=== PATIENT | male | born 1995 | race Caucasian/White ===

== ENCOUNTER 2017-03-05 12:20 | Emergency (ER) | payer SELFPAY ==
[2017-03-05 12:31] VITALS: BP 118/44
--- NOTE | 2017-03-05 12:36 | UC ---
Abdominal Pain Male HPI - HPI Summary HPI Summary: 21 YEAR OLD MALE PRESENTS WITH COMPLAINS NAUSEA, VOMITING AND ABDOMINAL PAIN - History of Current Complaint Chief Complaint: UCGeneralIllness Stated Complaint: NAUSEA DIARRHEA Time Seen by Provider: 03/05/17 12:30 - Allergies/Home Medications Allergies/Adverse Reactions: Allergies Allergy/AdvReac Type Severity Reaction Status Date / Time Sulfa Drugs Allergy Unknown Verified 03/05/17 12:31 Reaction Details Home Medications: Home Medications NK [No Home Medications Reported] 03/05/17 [History Confirmed 03/05/17] PMH/Surg Hx/FS Hx/Imm Hx - Surgical History Surgical History: Yes Surgery Procedure, Year, and Place: ear tubes at age 2-3 yrs - Family History Known Family History: Positive: None - Social History Alcohol Use: Weekly Substance Use Type: None Smoking Status (MU): Never Smoked Tobacco - Immunization History Most Recent Influenza Vaccination: [id number] Review of Systems Constitutional: Negative Skin: Negative Eyes: Negative ENT: Negative Respiratory: Negative Cardiovascular: Negative Gastrointestinal: Abdominal Pain, Vomiting, Diarrhea, Nausea Genitourinary: Negative Motor: Negative Neurovascular: Negative Musculoskeletal: Negative Neurological: Negative Psychological: Negative All Other Systems Reviewed And Are Negative: Yes Physical Exam Triage Information Reviewed: Yes Vital Signs: Initial Vital Signs Temp 36.9 C 03/05/17 12:29 Pulse 76 03/05/17 12:29 Resp 14 03/05/17 12:29 BP 118/44 03/05/17 12:29 Pulse Ox 96 03/05/17 12:29 Eye Exam: Normal ENT Exam: Normal Dental Exam: Normal Neck exam: Normal Neck: Positive: 1 Respiratory Exam: Normal Cardiovascular Exam: Normal Abdomen Description: Positive: Other: - TENDER Musculoskeletal Exam: Normal Neurological Exam: Normal Psychological Exam: Normal Skin Exam: Normal Abd Pain Male Course/Dx - Differential Dx/Clinical Impression Provider Diagnoses: NAUSEA. VOMITTING Discharge - Discharge Plan Condition: Stable Disposition: HOME Patient Education Materials: Acute Nausea and Vomiting (ED) Forms: *Work Release Referrals: Rosario Sabillon MD [Primary Care Provider] -
== END 2017-03-05 12:45 | disposition home or self-care (01) ==
LOC: UCCORT 12:20
DX: R11.2 Nausea with vomiting, unspecified (principal)
CPT/HCPCS: 99211; G0463

== ENCOUNTER 2017-05-03 08:29 | Emergency (ER) | payer SELFPAY ==
[2017-05-03 08:54] VITALS: BP 114/58
--- NOTE | 2017-05-12 19:15 | UC ---
Abdominal Pain Male HPI - HPI Summary HPI Summary: 21 YEAR OLD MALE PRESENTS WITH LEFT ABDOMINAL PAIN AFTER USING THE CRUNCH MACHINE AT THE GYM. I AM CONCERNED ABOUT A TORN ABDOMINAL MUSCLE AND WILL SEND HIM TO THE ER - History of Current Complaint Chief Complaint: UCAbdominalPain Stated Complaint: PERSONAL Time Seen by Provider: 05/03/17 08:32 Hx Obtained From: Patient Onset/Duration: Sudden Onset Timing: Constant Severity Initially: Severe Severity Currently: Severe Pain Intensity: 4 Pain Scale Used: 0-10 Numeric - Allergies/Home Medications Allergies/Adverse Reactions: Allergies Allergy/AdvReac Type Severity Reaction Status Date / Time Sulfa Drugs Allergy Unknown Verified 05/03/17 08:48 Reaction Details PMH/Surg Hx/FS Hx/Imm Hx Previously Healthy: Yes - Surgical History Surgical History: Yes Surgery Procedure, Year, and Place: ear tubes at age 2-3 yrs - Family History Known Family History: Positive: None - Social History Alcohol Use: Rare Substance Use Type: None Smoking Status (MU): Never Smoked Tobacco - Immunization History Most Recent Influenza Vaccination: [id number] Review of Systems Constitutional: Negative Skin: Negative Eyes: Negative ENT: Negative Respiratory: Negative Cardiovascular: Negative Gastrointestinal: Abdominal Pain - LEFT ABDOMINAL PAIN Genitourinary: Negative Motor: Negative Neurovascular: Negative Musculoskeletal: Negative Neurological: Negative Psychological: Negative All Other Systems Reviewed And Are Negative: Yes Physical Exam Triage Information Reviewed: Yes Appearance: Pain Distress Vital Signs: Initial Vital Signs Temp 36.9 C 05/03/17 08:40 Pulse 68 05/03/17 08:40 Resp 16 05/03/17 08:40 BP 114/58 05/03/17 08:40 Eye Exam: Normal ENT Exam: Normal Dental Exam: Normal Neck exam: Normal Neck: Positive: 1 Respiratory Exam: Normal Cardiovascular Exam: Normal Abdominal Exam: Normal Abdomen Description: Positive: Other: - LEFT ABDOMINAL PAIN Musculoskeletal Exam: Normal Neurological Exam: Normal Psychological Exam: Normal Skin Exam: Normal Abd Pain Male Course/Dx - Differential Dx/Clinical Impression Provider Diagnoses: LEFT ABDOMINAL PAIN Discharge - Discharge Plan Condition: Stable Disposition: HOME Patient Education Materials: Acute Abdominal Pain (ED) Referrals: No Primary Care Phys,NOPCP [Primary Care Provider] - Additional Instructions: PATIENT SUGGESTED TO GO TO [facility] [place] TO RULE OUT INGUINAL HERNIA SEOCNDARY TO SEVERE ABDOMINAL PAIN
== END 2017-05-03 08:52 | disposition home or self-care (01) ==
LOC: UCCORT 08:29
DX: R10.32 Left lower quadrant pain (principal); Z88.2 Allergy status to sulfonamides
CPT/HCPCS: 99212; G0463

== ENCOUNTER 2017-06-13 17:18 | Emergency (ER) | payer SELFPAY ==
[2017-06-13 17:51] VITALS: BP 127/68
--- NOTE | 2017-06-13 18:15 | UC ---
Throat Pain/Nasal Rajat HPI - HPI Summary HPI Summary: 21 year old male with numerous complaints. 1) Headache, bilateral ear "clogged" , "sinus pressure", "yellowish" nasal congestion, sore throat (now resolved), and nonproductive cough for two days. No known fever. 2) Patient's girlfriend tested positive for chlamydia today. Patient needs treatment. Difficulty urinating after intercourse for months. Patient cannot swallow pills. 3) Found tick on patient's arm when attempting blood pressure - removed and patient did a tick check with his girlfriend in the room. Patient works retail. No PCP. [ End ] - History of Current Complaint Chief Complaint: UCGeneralIllness Stated Complaint: COUGH, SORE THROAT,EARS HEADACHE Time Seen by Provider: 06/13/17 18:06 Hx Obtained From: Patient Onset/Duration: Gradual Onset Severity: Mild - Allergies/Home Medications Allergies/Adverse Reactions: Allergies Allergy/AdvReac Type Severity Reaction Status Date / Time Sulfa Drugs Allergy Unknown Verified 06/13/17 17:46 Reaction Details Penicillins AdvReac GI Upset Verified 06/13/17 17:46 PMH/Surg Hx/FS Hx/Imm Hx Previously Healthy: Yes - Surgical History Surgical History: Yes Surgery Procedure, Year, and Place: ear tubes at age 2-3 yrs - Family History Known Family History: Positive: None - Social History Occupation: Employed Full-time Lives: With Family Alcohol Use: Weekly Substance Use Type: None Smoking Status (MU): Never Smoked Tobacco - Immunization History Most Recent Influenza Vaccination: Not the 2016/2017 Season Review of Systems Skin: Other - tick on body no lesion ENT: Ear Ache, Nasal Discharge Genitourinary: Other - STD exposure Is Patient Immunocompromised?: No All Other Systems Reviewed And Are Negative: Yes Physical Exam Triage Information Reviewed: Yes Appearance: Well-Appearing, No Pain Distress, Well-Nourished Vital Signs: Initial Vital Signs Temp 98.9 F 06/13/17 17:42 Pulse 76 06/13/17 17:42 Resp 16 06/13/17 17:42 BP 127/68 06/13/17 17:42 Pulse Ox 100 06/13/17 17:42 Vital Signs Reviewed: Yes Eye Exam: Normal ENT Exam: Normal Dental Exam: Normal Neck exam: Normal Neck: Positive: 1 Respiratory Exam: Normal Cardiovascular Exam: Normal Abdominal Exam: Normal Musculoskeletal Exam: Normal Neurological Exam: Normal Psychological Exam: Normal Skin Exam: Normal Throat Pain/Nasal Course/Dx - Course Course Of Treatment: no rash -- tick < 24 hours. no S/S of STD but gf starting treatment today. advised safe sexual practices - Differential Dx/Diagnosis Differential Diagnosis/HQI/PQRI: URI Provider Diagnoses: 1) URI. 2) Tick exposure. 3) chlamydia exposure Discharge - Discharge Plan Condition: Good Disposition: HOME Prescriptions: Azithromycin [Azithromycin 500 MG TAB] 500 mg PO DAILY #2 tab Patient Education Materials: Chlamydia (ED) Referrals: No Primary Care Phys,NOPCP [Primary Care Provider] - 4 Days
== END 2017-06-13 18:35 | disposition home or self-care (01) ==
LOC: UCCORT 17:18
DX: J06.9 Acute upper respiratory infection, unspecified (principal); Z88.0 Allergy status to penicillin; Z88.2 Allergy status to sulfonamides; Z20.2 Contact with and (suspected) exposure to infections with a predominantly sexual mode of transmission
CPT/HCPCS: 36415; 86703; 99212; G0463

== ENCOUNTER 2017-11-28 20:41 | Emergency (ER) | payer SELFPAY ==
[2017-11-28 21:11] VITALS: BP 118/67
--- NOTE | 2017-11-28 21:11 | UC ---
Respiratory Complaint HPI - HPI Summary HPI Summary: 21 year old male with cough. SORE THROAT, CHEST AND NASAL CONGESTION X APPROX 1 WK, COUGH. PT ALSO REQUESTS REPEAT CHLAMYDIA TESTING.has had cough with sore throat for a week , he states he had strep in the past and it feels like that. also with hoarse voice. no chest pain, no wheeze, no SOB. [ End ] - History of Current Complaint Stated Complaint: COLD SYMPTOMS Time Seen by Provider: 11/28/17 21:08 Hx Obtained From: Patient Onset/Duration: Gradual Onset Timing: Constant Severity Initially: Mild Severity Currently: Moderate Character: Cough: Productive - Allergies/Home Medications Allergies/Adverse Reactions: Allergies Allergy/AdvReac Type Severity Reaction Status Date / Time Penicillins AdvReac Vomiting Verified 11/28/17 21:07 Sulfa (Sulfonamide AdvReac Vomiting Verified 11/28/17 21:07 Antibiotics) Home Medications: Home Medications Ibuprofen TAB* [Advil TAB*] 600 mg PO Q6H PRN 11/28/17 [History Confirmed ] PMH/Surg Hx/FS Hx/Imm Hx Previously Healthy: Yes - Surgical History Surgical History: Yes Surgery Procedure, Year, and Place: ear tubes at age 2-3 yrs - Family History Known Family History: Positive: None - Social History Occupation: Employed Full-time Lives: With Family Alcohol Use: Weekly Substance Use Type: None Smoking Status (MU): Never Smoked Tobacco - Immunization History Most Recent Influenza Vaccination: Not the 2017/2017 Season Review of Systems Constitutional: Fatigue ENT: Sore Throat, Nasal Discharge, Sinus Congestion, Sinus Pain/Tenderness Respiratory: Cough Is Patient Immunocompromised?: No All Other Systems Reviewed And Are Negative: Yes Physical Exam Triage Information Reviewed: Yes Appearance: Well-Appearing, No Pain Distress, Well-Nourished Vital Signs Reviewed: Yes Eye Exam: Normal ENT Exam: Normal ENT: Positive: Pharyngeal erythema, TMs normal, Hoarse voice. Negative: Tonsillar swelling, Tonsillar exudate Dental Exam: Normal Neck exam: Normal Neck: Positive: 1 Respiratory Exam: Normal Cardiovascular Exam: Normal Musculoskeletal Exam: Normal Neurological Exam: Normal Psychological Exam: Normal Skin Exam: Normal Respiratory Course/Dx - Course Course Of Treatment: 1) URI : neg throat cx and f/u prn. 2) had GC/C 6 mo ago and had treatment and ensure resolution at this time, NO SYMPTOMS AT THIS TIME AND NO TREATMENT INDICATED AT THIS TIME - Differential Dx/Diagnosis Differential Diagnosis/HQI/PQRI: Bronchitis, Lower Resp Infection, Sinusitis Provider Diagnoses: 1)URI. 2) history of STD with GC/Chlamydia (V01.9) Discharge - Sign-Out/Discharge Documenting (check all that apply): Discharge - Discharge Plan Condition: Good Disposition: HOME Prescriptions: Benzonatate CAP* [Tessalon 100 MG CAP*] 100 mg PO TID PRN #20 cap PRN Reason: Cough Patient Education Materials: Upper Respiratory Infection (ED) Referrals: No Primary Care Phys,NOPCP [Primary Care Provider] - 4 Days Additional Instructions: You had a negative strep test today . - Billing Disposition and Condition Condition: GOOD Disposition: HOME
== END 2017-11-28 21:39 | disposition home or self-care (01) ==
LOC: UCCORT 20:41
DX: J06.9 Acute upper respiratory infection, unspecified (principal); Z86.19 Personal history of other infectious and parasitic diseases; Z88.0 Allergy status to penicillin; Z88.2 Allergy status to sulfonamides
CPT/HCPCS: 87491; 87591; 87651; 99211; G0463

== ENCOUNTER 2017-12-16 23:35 | Emergency (ER) | payer SELFPAY ==
--- NOTE | 2017-12-17 01:13 | ED ---
Throat Pain/Nasal Congestion - HPI Summary HPI Summary: 22 male presents with right sided neck swelling for the past 2 days. He states that swelling has decreased after taking ibuprofen. He denies any change when he eats food but chewing gum does help. He has taken ibuprofen which has decreased swelling. He denies any sore throat. Denies any chest pain or shortness of breath. He does have an impacted tooth on the top that has been resolving. has follow up with dentist in a week. He's never had this before. He denies any fevers. He did have an upper respiratory infection a week ago that has since resolved. He states the area is painful. - History of Current Complaint Chief Complaint: EDThroatPain Time Seen by Provider: 12/17/17 00:04 - Allergies/Home Medications Allergies/Adverse Reactions: Allergies Allergy/AdvReac Type Severity Reaction Status Date / Time Penicillins AdvReac Vomiting Verified 12/17/17 00:43 Sulfa (Sulfonamide AdvReac Vomiting Verified 12/17/17 00:43 Antibiotics) PMH/Surg Hx/FS Hx/Imm Hx Endocrine/Hematology History: Denies: Hx Diabetes Respiratory History: Reports: Hx Asthma - Surgical History Surgery Procedure, Year, and Place: ear tubes at age 2-3 yrs Infectious Disease History: No Infectious Disease History: Denies: Traveled Outside the [place] in Last 30 Days - Family History Known Family History: Positive: None - Social History Alcohol Use: Weekly Substance Use Type: Reports: None Smoking Status (MU): Never Smoked Tobacco Review of Systems Negative: Fever Positive: Other - right side neck swelling Negative: Chest Pain Negative: Shortness Of Breath All Other Systems Reviewed And Are Negative: Yes Physical Exam Triage Information Reviewed: Yes Vital Signs On Initial Exam: Initial Vitals Temp Pulse Resp BP Pulse Ox 97.7 F 75 16 126/66 100 12/16/17 23:39 12/16/17 23:39 12/16/17 23:39 12/16/17 23:39 12/16/17 23:39 Vital Signs Reviewed: Yes Appearance: Positive: Well-Appearing Skin: Positive: Warm, Dry Head/Face: Positive: Normal Head/Face Inspection Eyes: Positive: Normal, EOMI, CAS, Conjunctiva Clear ENT: Positive: Normal ENT inspection, Pharynx normal, TMs normal Neck: Positive: Tenderness @ - right submandibular enlarged Respiratory/Lung Sounds: Positive: Clear to Auscultation, Breath Sounds Present Cardiovascular: Positive: Normal, RRR Abdomen Description: Positive: Nontender, Soft Bowel Sounds: Positive: Present Musculoskeletal: Positive: Normal Neurological: Positive: Normal Psychiatric: Positive: Normal Diagnostics - Vital Signs Vital Signs Temp Pulse Resp BP Pulse Ox 12/16/17 23:39 97.7 F 75 16 126/66 100 - Laboratory Lab Results: Lab Results 12/17/17 Range/Units 00:33 Group A Strep Rapid Negative (Negative) Lab Statement: Any lab studies that have been ordered have been reviewed, and results considered in the medical decision making process. EENT Course/Dx - Course Course Of Treatment: 22 male presents with right sided neck swelling for the past 2 days. He states that swelling has decreased after taking ibuprofen. He denies any change when he eats food but chewing gum does help. He has taken ibuprofen which has decreased swelling. He denies any sore throat. Denies any chest pain or shortness of breath. He does have an impacted tooth on the top that has been resolving. has follow up with dentist in a week. He's never had this before. He denies any fevers. He did have an upper respiratory infection a week ago that has since resolved. He states the area is painful. On exam has edema over this right submandibular area. Unable to tell if it is a lymph node versus sailadentitis. Nontender over [place] andStensen's duct no discharge in the area. No dental abscess noted. Pharynx normal. Strep negative. Will treat this potential lymphadenitis with Augmentin. Will also have massage area and place heat on the area in case it is a salivary stone. Will follow up with dentist. Patient understands and agrees with plan. - Differential Diagnoses Differential Diagnoses: Pharyngitis, Other - salivary gland stone, lymphadengitis - Diagnoses Provider Diagnoses: Submandibular swelling Discharge - Sign-Out/Discharge Documenting (check all that apply): Discharge - Discharge Plan Condition: Stable Disposition: HOME Prescriptions: Amoxicillin/Clavulanate TAB* [Augmentin TAB 500 mg*] 500 mg PO BID #14 tab Ondansetron ODT TAB* [Zofran 4 MG Odt TAB*] 4 mg PO Q6H PRN #14 tab.odt PRN Reason: Nausea Referrals: No Primary Care Phys,NOPCP [Primary Care Provider] - Additional Instructions: symptoms are either caused by salivary stone or enlarged lymph node Take augmentin twice a day for 7 days Take zofran every 6 hours as needed for nausea Chew gum and suck on hard candies Massage area Place heat on area Follow up with dentist Return to ED if develop any new or worsening symptoms - Billing Disposition and Condition Condition: STABLE Disposition: HOME
[2017-12-17 01:21] VITALS: BP 120/66
== END 2017-12-17 01:21 | disposition home or self-care (01) ==
LOC: ED 23:35
DX: R22.0 Localized swelling, mass and lump, head (principal); R11.0 Nausea; J45.909 Unspecified asthma, uncomplicated; Z88.0 Allergy status to penicillin; Z88.2 Allergy status to sulfonamides
CPT/HCPCS: 87651; 99282

== ENCOUNTER 2017-12-20 15:05 | Emergency (ER) | payer SELFPAY ==
[2017-12-20 17:17] VITALS: BP 123/60
--- NOTE | 2017-12-20 17:20 | ED ---
Throat Pain/Nasal Congestion - HPI Summary HPI Summary: Patient is a 22-year-old male who presents to the ED with chief complaint of bilateral tonsillitis which is been present 6 days. He was seen 2 days ago here in the ED and given Augmentin for a possible bacterial component. He was also given Zofran to prevent any upset stomach. He states despite the Augmentin , he continues to have bilateral tonsillar swelling which is worse immediately after eating. No pain or swelling to the parotid area or sublingual areas. Symptoms improve after ibuprofen and states the Augmentin has also helped improve his symptoms 2 days ago. He states he returns today because he is feeling the tonsils should not be enlarged anymore since he has been taking the antibiotic. He denies any fatigue. He denies any other symptoms and states he is feeling at his baseline. He recently got over a respiratory infection last week, and continues to be asymptomatic otherwise. Denies any sick contacts. Immunizations are up-to-date. Pain intermittently with swallowing. Denies any difficulty breathing. Afebrile and denies any sweats or chills. - History of Current Complaint Chief Complaint: EDThroatPain Time Seen by Provider: 12/20/17 15:31 Hx Obtained From: Patient Onset/Duration: Sudden Onset Severity: Moderate Associated Signs And Symptoms: Positive: Dysphagia - Epiglottits Risk Factors Epiglottis Risk Factors: Negative - Allergies/Home Medications Allergies/Adverse Reactions: Allergies Allergy/AdvReac Type Severity Reaction Status Date / Time Penicillins AdvReac Vomiting Verified 12/17/17 00:43 Sulfa (Sulfonamide AdvReac Vomiting Verified 12/17/17 00:43 Antibiotics) PMH/Surg Hx/FS Hx/Imm Hx Previously Healthy: Yes Endocrine/Hematology History: Denies: Hx Diabetes Respiratory History: Reports: Hx Asthma - Surgical History Surgery Procedure, Year, and Place: ear tubes at age 2-3 yrs - Immunization History Hx Pertussis Vaccination: No Immunizations Up to Date: Unable to Obtain/Confirm Infectious Disease History: No Infectious Disease History: Denies: Traveled Outside the [place] in Last 30 Days - Family History Known Family History: Positive: None - Social History Occupation: Employed Part-time Lives: With Family Alcohol Use: Weekly Hx Substance Use: No Substance Use Type: Reports: None Smoking Status (MU): Never Smoked Tobacco Review of Systems Constitutional: Negative Negative: Fever, Chills, Fatigue, Skin Diaphoresis Negative: Blurred Vision Positive: Sore Throat Negative: Palpitations, Chest Pain Negative: Shortness Of Breath, Cough Genitourinary: Negative Positive: no symptoms reported, see HPI Negative: Arthralgia, Myalgia Negative: Headache, Weakness, Paresthesia Negative: Anxious, Depressed All Other Systems Reviewed And Are Negative: Yes Physical Exam Triage Information Reviewed: Yes Vital Signs On Initial Exam: Initial Vitals Temp Pulse Resp BP Pulse Ox 97.7 F 73 16 119/52 100 12/20/17 15:09 12/20/17 15:09 12/20/17 15:09 12/20/17 15:09 12/20/17 15:09 Vital Signs Reviewed: Yes Appearance: Positive: Well-Appearing, No Pain Distress, Well-Nourished Skin: Positive: Warm, Skin Color Reflects Adequate Perfusion Head/Face: Positive: Normal Head/Face Inspection Eyes: Positive: Normal, CAS Neck: Positive: Supple, Enlarged Nodes @ - cervical anterior LAD Respiratory/Lung Sounds: Positive: Clear to Auscultation, Breath Sounds Present Cardiovascular: Positive: RRR, Pulses are Symmetrical in both Upper and Lower Extremities Musculoskeletal: Positive: Normal, Strength/ROM Intact Neurological: Positive: Speech Normal Psychiatric: Positive: Normal, Affect/Mood Appropriate Diagnostics - Vital Signs Vital Signs Temp Pulse Resp BP Pulse Ox 12/20/17 17:15 97.8 F 61 18 123/60 100 12/20/17 15:09 97.7 F 73 16 119/52 100 - Laboratory Lab Statement: Any lab studies that have been ordered have been reviewed, and results considered in the medical decision making process. EENT Course/Dx - Course Course Of Treatment: Bilateral tonsillitis +2. There is no evidence of tonsillar abscess and no drainage. He states the area is not bad now as he has taken his ibuprofen and Augmentin. I've encouraged him to continue his Augmentin however I will add on a steroid with a tapering dose over a span of 8 days. He is also given follow-up to ENT to which he will use early next week if symptoms have not improved. He is okay with this plan and discharge and voices no concerns at this time. He is encouraged to continue his ibuprofen. - Diagnoses Provider Diagnoses: Tonsillitis Discharge - Sign-Out/Discharge Documenting (check all that apply): Discharge - Discharge Plan Condition: Stable Disposition: HOME Prescriptions: predniSONE TAB* [Deltasone TAB*] 10 mg PO DAILY #20 tab Patient Education Materials: Tonsillitis (ED) Referrals: Jase Charles MD [Medical Doctor] - No Primary Care Phys,NOPCP [Primary Care Provider] - Additional Instructions: On day 1, 2 take 4 tabs On day 3, 4 take 3 tabs On day 5, 6 take 2 tabs and on day 7,8 take 1 tabs Take other medications as prescribed Ibuprofen for any discomfort Follow up with ENT for any worsening symptoms - Billing Disposition and Condition Condition: STABLE Disposition: HOME
== END 2017-12-20 17:15 | disposition home or self-care (01) ==
LOC: ED 15:05
DX: J03.90 Acute tonsillitis, unspecified (principal)
CPT/HCPCS: 99282

== ENCOUNTER 2018-02-26 15:00 | Emergency (ER) | payer SELFPAY ==
[2018-02-26 15:18] VITALS: BP 134/57
--- NOTE | 2018-02-26 15:32 | UC ---
Throat Pain/Nasal Rajat HPI - HPI Summary HPI Summary: Pt c/o ST X 4 days. Pt also reports that he has nasal congstion "that is traveling to his chest" Pt states that he has a cough that is worse at night that began 2 days ago. Denies fever or chills. - History of Current Complaint Hx Obtained From: Patient Onset/Duration: Gradual Onset, Lasting Days, Still Present, Worse Since - onset Severity: Mild Pain Intensity: 5 Cough: Nonproductive Associated Signs & Symptoms: Positive: Dysphagia - Epiglottits Risk Factors Epiglottis Risk Factors: Negative <Kristi Melchor NP - Last Filed: 02/26/18 15:57> <Juan Diego Leahy - Last Filed: 02/26/18 18:51> - History of Current Complaint Chief Complaint: UCGeneralIllness Stated Complaint: SORE THROAT Time Seen by Provider: 02/26/18 15:20 - Allergies/Home Medications Allergies/Adverse Reactions: Allergies Allergy/AdvReac Type Severity Reaction Status Date / Time Penicillins AdvReac Vomiting Verified 02/26/18 15:15 Sulfa (Sulfonamide AdvReac Vomiting Verified 02/26/18 15:15 Antibiotics) Home Medications: Home Medications Cetirizine* [ZyrTEC 10 MG TAB*] 10 mg PO ONCE 02/26/18 [History Confirmed ] PMH/Surg Hx/FS Hx/Imm Hx Previously Healthy: Yes - Surgical History Surgical History: Yes Surgery Procedure, Year, and Place: ear tubes at age 2-3 yrs - Family History Known Family History: Positive: None, Blood Disorder - mom has lymphoma - Social History Occupation: Employed Full-time Lives: With Family Alcohol Use: Weekly Substance Use Type: None Smoking Status (MU): Never Smoked Tobacco Have You Smoked in the Last Year: No - Immunization History Most Recent Influenza Vaccination: Not the 2017/2017 Season <Kristi Melchor NP - Last Filed: 02/26/18 15:57> Review of Systems Constitutional: Negative Skin: Negative Eyes: Negative ENT: Sore Throat Respiratory: Cough Cardiovascular: Negative Gastrointestinal: Negative Genitourinary: Negative Motor: Negative Neurovascular: Negative Musculoskeletal: Negative Neurological: Negative Psychological: Negative Is Patient Immunocompromised?: No All Other Systems Reviewed And Are Negative: Yes <Kristi Melchor NP Last Filed: 02/26/18 15:57> Physical Exam Triage Information Reviewed: Yes Appearance: Well-Appearing Vital Signs: Initial Vital Signs Temp 98.5 F 02/26/18 15:12 Pulse 79 02/26/18 15:12 Resp 16 02/26/18 15:12 BP 134/57 02/26/18 15:12 Pulse Ox 100 02/26/18 15:12 Vital Signs Reviewed: Yes Eye Exam: Normal ENT Exam: Normal Dental Exam: Normal Neck exam: Normal Respiratory Exam: Normal Cardiovascular Exam: Normal Musculoskeletal Exam: Normal Neurological Exam: Normal Psychological Exam: Normal Skin Exam: Normal <Kristi Melchor NP - Last Filed: 02/26/18 15:57> Vital Signs: Initial Vital Signs Temp 98.5 F 02/26/18 15:12 Pulse 79 02/26/18 15:12 Resp 16 02/26/18 15:12 BP 134/57 02/26/18 15:12 Pulse Ox 100 02/26/18 15:12 <Juan Diego Leahy - Last Filed: 02/26/18 18:51> Diagnostics - Laboratory Diagnostic Studies Completed/Ordered: rapid strep: negative <Kristi Melchor NP - Last Filed: 02/26/18 15:57> Throat Pain/Nasal Course/Dx - Differential Dx/Diagnosis Differential Diagnosis/HQI/PQRI: Mononucleosis, Pharyngitis, Tonsillitis, URI Provider Diagnoses: viral syndrome <Kristi Melchor NP Last Filed: 02/26/18 15:57> Discharge - Sign-Out/Discharge Documenting (check all that apply): Discharge/Admit/Transfer - Billing Disposition and Condition Condition: STABLE Disposition: Home <Kristi Melchor NP - Last Filed: 02/26/18 15:57> - Billing Disposition and Condition Condition: STABLE Disposition: Home <Juan Diego Leahy - Last Filed: 02/26/18 18:51> - Discharge Plan Condition: Stable Disposition: HOME Patient Education Materials: Viral Syndrome (ED) Referrals: [facility] [Outside] No Primary Care Phys,NOPCP [Primary Care Provider] - Additional Instructions: Throat Pain/Nasal Rajat HPI - HPI Summary HPI Summary: Pt c/o ST X 4 days. Pt also reports that he has nasal congstion "that is traveling to his chest" Pt states that he has a cough that is worse at night that began 2 days ago. Denies fever or chills. - History of Current Complaint Hx Obtained From: Patient Onset/Duration: Gradual Onset, Lasting Days, Still Present, Worse Since - onset Severity: Mild Pain Intensity: 5 Cough: Nonproductive Associated Signs & Symptoms: Positive: Dysphagia - Epiglottits Risk Factors Epiglottis Risk Factors: Negative <Kristi Melchor NP - Last Filed: 02/26/18 15:57> <Juan Diego Leahy - Last Filed: 02/26/18 18:39> - History of Current Complaint Chief Complaint: UCGeneralIllness Stated Complaint: SORE THROAT Time Seen by Provider: 02/26/18 15:20 - Allergies/Home Medications Allergies/Adverse Reactions: Allergies Allergy/AdvReac Type Severity Reaction Status Date / Time Penicillins AdvReac Vomiting Verified 02/26/18 15:15 Sulfa (Sulfonamide AdvReac Vomiting Verified 02/26/18 15:15 Antibiotics) Home Medications: Home Medications Cetirizine* [ZyrTEC 10 MG TAB*] 10 mg PO ONCE 02/26/18 [History Confirmed ] PMH/Surg Hx/FS Hx/Imm Hx Previously Healthy: Yes - Surgical History Surgical History: Yes Surgery Procedure, Year, and Place: ear tubes at age 2-3 yrs - Family History Known Family History: Positive: None, Blood Disorder - mom has lymphoma - Social History Occupation: Employed Full-time Lives: With Family Alcohol Use: Weekly Substance Use Type: None Smoking Status (MU): Never Smoked Tobacco Have You Smoked in the Last Year: No - Immunization History Most Recent Influenza Vaccination: Not the 2017/2017 Season <Kristi Melchor NP Last Filed: 02/26/18 15:57> Review of Systems Constitutional: Negative Skin: Negative Eyes: Negative ENT: Sore Throat Respiratory: Cough Cardiovascular: Negative Gastrointestinal: Negative Genitourinary: Negative Motor: Negative Neurovascular: Negative Musculoskeletal: Negative Neurological: Negative Psychological: Negative Is Patient Immunocompromised?: No All Other Systems Reviewed And Are Negative: Yes <Kristi Melchor NP - Last Filed: 02/26/18 15:57> Physical Exam Triage Information Reviewed: Yes Appearance: Well-Appearing Vital Signs: Initial Vital Signs Temp 98.5 F 02/26/18 15:12 Pulse 79 02/26/18 15:12 Resp 16 02/26/18 15:12 BP 134/57 02/26/18 15:12 Pulse Ox 100 02/26/18 15:12 Vital Signs Reviewed: Yes Eye Exam: Normal ENT Exam: Normal Dental Exam: Normal Neck exam: Normal Respiratory Exam: Normal Cardiovascular Exam: Normal Musculoskeletal Exam: Normal Neurological Exam: Normal Psychological Exam: Normal Skin Exam: Normal <Kristi Melchor NP - Last Filed: 02/26/18 15:57> Vital Signs: Initial Vital Signs Temp 98.5 F 02/26/18 15:12 Pulse 79 02/26/18 15:12 Resp 16 02/26/18 15:12 BP 134/57 02/26/18 15:12 Pulse Ox 100 02/26/18 15:12 <Juan Diego Leahy - Last Filed: 02/26/18 18:39> Diagnostics - Laboratory Diagnostic Studies Completed/Ordered: rapid strep: negative <Kristi Melchor NP - Last Filed: 02/26/18 15:57> Throat Pain/Nasal Course/Dx - Differential Dx/Diagnosis Differential Diagnosis/HQI/PQRI: Mononucleosis, Pharyngitis, Tonsillitis, URI Provider Diagnoses: viral syndrome <Kristi Melchor NP Last Filed: 02/26/18 15:57> Discharge - Sign-Out/Discharge Documenting (check all that apply): Discharge/Admit/Transfer - Billing Disposition and Condition Condition: STABLE Disposition: Home <Kristi Melchor NP Last Filed: 02/26/18 15:57> - Billing Disposition and Condition Condition: STABLE Disposition: Home <Juan Diego Leahy - Last Filed: 02/26/18 18:39> - Discharge Plan Condition: Stable Disposition: HOME Patient Education Materials: Viral Syndrome (ED) Referrals: [facility] [Outside] No Primary Care Phys,NOPCP [Primary Care Provider] - Throat Pain/Nasal Rajat HPI - HPI Summary HPI Summary: Pt c/o ST X 4 days. Pt also reports that he has nasal congstion "that is traveling to his chest" Pt states that he has a cough that is worse at night that began 2 days ago. Denies fever or chills. - History of Current Complaint Hx Obtained From: Patient Onset/Duration: Gradual Onset, Lasting Days, Still Present, Worse Since - onset Severity: Mild Pain Intensity: 5 Cough: Nonproductive Associated Signs & Symptoms: Positive: Dysphagia - Epiglottits Risk Factors Epiglottis Risk Factors: Negative <Kristi Melchor NP - Last Filed: 02/26/18 15:57> <Juan Diego Leahy - Last Filed: 02/26/18 18:33> - History of Current Complaint Chief Complaint: UCGeneralIllness Stated Complaint: SORE THROAT Time Seen by Provider: 02/26/18 15:20 - Allergies/Home Medications Allergies/Adverse Reactions: Allergies Allergy/AdvReac Type Severity Reaction Status Date / Time Penicillins AdvReac Vomiting Verified 02/26/18 15:15 Sulfa (Sulfonamide AdvReac Vomiting Verified 02/26/18 15:15 Antibiotics) Home Medications: Home Medications Cetirizine* [ZyrTEC 10 MG TAB*] 10 mg PO ONCE 02/26/18 [History Confirmed ] PMH/Surg Hx/FS Hx/Imm Hx Previously Healthy: Yes - Surgical History Surgical History: Yes Surgery Procedure, Year, and Place: ear tubes at age 2-3 yrs - Family History Known Family History: Positive: None, Blood Disorder - mom has lymphoma - Social History Occupation: Employed Full-time Lives: With Family Alcohol Use: Weekly Substance Use Type: None Smoking Status (MU): Never Smoked Tobacco Have You Smoked in the Last Year: No - Immunization History Most Recent Influenza Vaccination: Not the 2017/2017 Season <Kristi Melchor NP - Last Filed: 02/26/18 15:57> Review of Systems Constitutional: Negative Skin: Negative Eyes: Negative ENT: Sore Throat Respiratory: Cough Cardiovascular: Negative Gastrointestinal: Negative Genitourinary: Negative Motor: Negative Neurovascular: Negative Musculoskeletal: Negative Neurological: Negative Psychological: Negative Is Patient Immunocompromised?: No All Other Systems Reviewed And Are Negative: Yes <Kristi Melchor NP Last Filed: 02/26/18 15:57> Physical Exam Triage Information Reviewed: Yes Appearance: Well-Appearing Vital Signs: Initial Vital Signs Temp 98.5 F 02/26/18 15:12 Pulse 79 02/26/18 15:12 Resp 16 02/26/18 15:12 BP 134/57 02/26/18 15:12 Pulse Ox 100 02/26/18 15:12 Vital Signs Reviewed: Yes Eye Exam: Normal ENT Exam: Normal Dental Exam: Normal Neck exam: Normal Respiratory Exam: Normal Cardiovascular Exam: Normal Musculoskeletal Exam: Normal Neurological Exam: Normal Psychological Exam: Normal Skin Exam: Normal <Kristi Melchor NP Last Filed: 02/26/18 15:57> Vital Signs: Initial Vital Signs Temp 98.5 F 02/26/18 15:12 Pulse 79 02/26/18 15:12 Resp 16 02/26/18 15:12 BP 134/57 02/26/18 15:12 Pulse Ox 100 02/26/18 15:12 <Juan Diego Leahy - Last Filed: 02/26/18 18:33> Diagnostics - Laboratory Diagnostic Studies Completed/Ordered: rapid strep: negative <Kristi Melchor NP Last Filed: 02/26/18 15:57> Throat Pain/Nasal Course/Dx - Differential Dx/Diagnosis Differential Diagnosis/HQI/PQRI: Mononucleosis, Pharyngitis, Tonsillitis, URI Provider Diagnoses: viral syndrome <Kristi Melchor NP Last Filed: 02/26/18 15:57> Discharge - Sign-Out/Discharge Documenting (check all that apply): Discharge/Admit/Transfer - Billing Disposition and Condition Condition: STABLE Disposition: Home <Kristi Melchor NP Last Filed: 02/26/18 15:57> - Billing Disposition and Condition Condition: STABLE Disposition: Home <Juan Diego Leahy - Last Filed: 02/26/18 18:33> - Discharge Plan Condition: Stable Disposition: HOME Patient Education Materials: Viral Syndrome (ED) Referrals: [facility] [place] [facility] [Outside] No Primary Care Phys,NOPCP [Primary Care Provider] - Throat Pain/Nasal Rajat HPI - HPI Summary HPI Summary: Pt c/o ST X 4 days. Pt also reports that he has nasal congstion "that is traveling to his chest" Pt states that he has a cough that is worse at night that began 2 days ago. Denies fever or chills. - History of Current Complaint Hx Obtained From: Patient Onset/Duration: Gradual Onset, Lasting Days, Still Present, Worse Since - onset Severity: Mild Pain Intensity: 5 Cough: Nonproductive Associated Signs & Symptoms: Positive: Dysphagia - Epiglottits Risk Factors Epiglottis Risk Factors: Negative <Kristi Melchor NP - Last Filed: 02/26/18 15:57> <Juan Diego Leahy - Last Filed: 02/26/18 18:24> - History of Current Complaint Chief Complaint: UCGeneralIllness Stated Complaint: SORE THROAT Time Seen by Provider: 02/26/18 15:20 - Allergies/Home Medications Allergies/Adverse Reactions: Allergies Allergy/AdvReac Type Severity Reaction Status Date / Time Penicillins AdvReac Vomiting Verified 02/26/18 15:15 Sulfa (Sulfonamide AdvReac Vomiting Verified 02/26/18 15:15 Antibiotics) Home Medications: Home Medications Cetirizine* [ZyrTEC 10 MG TAB*] 10 mg PO ONCE 02/26/18 [History Confirmed ] PMH/Surg Hx/FS Hx/Imm Hx Previously Healthy: Yes - Surgical History Surgical History: Yes Surgery Procedure, Year, and Place: ear tubes at age 2-3 yrs - Family History Known Family History: Positive: None, Blood Disorder - mom has lymphoma - Social History Occupation: Employed Full-time Lives: With Family Alcohol Use: Weekly Substance Use Type: None Smoking Status (MU): Never Smoked Tobacco Have You Smoked in the Last Year: No - Immunization History Most Recent Influenza Vaccination: Not the 2017/2017 Season <Kristi Melchor NP Last Filed: 02/26/18 15:57> Review of Systems Constitutional: Negative Skin: Negative Eyes: Negative ENT: Sore Throat Respiratory: Cough Cardiovascular: Negative Gastrointestinal: Negative Genitourinary: Negative Motor: Negative Neurovascular: Negative Musculoskeletal: Negative Neurological: Negative Psychological: Negative Is Patient Immunocompromised?: No All Other Systems Reviewed And Are Negative: Yes <Kristi Melchor NP Last Filed: 02/26/18 15:57> Physical Exam Triage Information Reviewed: Yes Appearance: Well-Appearing Vital Signs: Initial Vital Signs Temp 98.5 F 02/26/18 15:12 Pulse 79 02/26/18 15:12 Resp 16 02/26/18 15:12 BP 134/57 02/26/18 15:12 Pulse Ox 100 02/26/18 15:12 Vital Signs Reviewed: Yes Eye Exam: Normal ENT Exam: Normal Dental Exam: Normal Neck exam: Normal Respiratory Exam: Normal Cardiovascular Exam: Normal Musculoskeletal Exam: Normal Neurological Exam: Normal Psychological Exam: Normal Skin Exam: Normal <Kristi Melchor NP - Last Filed: 02/26/18 15:57> Vital Signs: Initial Vital Signs Temp 98.5 F 02/26/18 15:12 Pulse 79 02/26/18 15:12 Resp 16 02/26/18 15:12 BP 134/57 02/26/18 15:12 Pulse Ox 100 02/26/18 15:12 <Juan Diego Leahy - Last Filed: 02/26/18 18:24> Diagnostics - Laboratory Diagnostic Studies Completed/Ordered: rapid strep: negative <Kristi Melchor NP - Last Filed: 02/26/18 15:57> Throat Pain/Nasal Course/Dx - Differential Dx/Diagnosis Differential Diagnosis/HQI/PQRI: Mononucleosis, Pharyngitis, Tonsillitis, URI Provider Diagnoses: viral syndrome <Kristi Melchor NP Last Filed: 02/26/18 15:57> Discharge - Sign-Out/Discharge Documenting (check all that apply): Discharge/Admit/Transfer - Billing Disposition and Condition Condition: STABLE Disposition: Home <Kristi Melchor NP - Last Filed: 02/26/18 15:57> - Billing Disposition and Condition Condition: STABLE Disposition: Home <Juan Diego Leahy - Last Filed: 02/26/18 18:24> - Discharge Plan Condition: Stable Disposition: HOME Patient Education Materials: Viral Syndrome (ED) Referrals: [facility] [Outside] No Primary Care Phys,NOPCP [Primary Care Provider] -
== END 2018-02-26 15:37 | disposition home or self-care (01) ==
LOC: UCCORT 15:00
DX: Z88.0 Allergy status to penicillin (principal); Z88.2 Allergy status to sulfonamides; B34.9 Viral infection, unspecified
CPT/HCPCS: 87651; 99211; G0463

== ENCOUNTER 2018-06-07 21:49 | Emergency (ER) | payer BC ==
[2018-06-07 21:59] VITALS: BP 129/71
--- NOTE | 2018-06-07 22:09 | ED ---
Throat Pain/Nasal Congestion - HPI Summary HPI Summary: pain in the throat for the last two days, able to swallow with some odynophagia , using motrin for the pain, denies fever or chills - History of Current Complaint Chief Complaint: UCGeneralIllness Time Seen by Provider: 06/07/18 22:02 Hx Obtained From: Patient Severity: Mild Associated Signs And Symptoms: Positive: Negative Cough: Nonproductive - Allergies/Home Medications Allergies/Adverse Reactions: Allergies Allergy/AdvReac Type Severity Reaction Status Date / Time Sulfa (Sulfonamide AdvReac Vomiting Verified 06/07/18 22:01 Antibiotics) PMH/Surg Hx/FS Hx/Imm Hx Previously Healthy: Yes Endocrine/Hematology History: Denies: Hx Diabetes Respiratory History: Reports: Hx Asthma - Surgical History Surgery Procedure, Year, and Place: ear tubes at age 2-3 yrs Infectious Disease History: No Infectious Disease History: Denies: Traveled Outside the [place] in Last 30 Days - Family History Known Family History: Positive: None, Blood Disorder - mom has lymphoma - Social History Alcohol Use: Weekly Hx Substance Use: No Substance Use Type: Reports: None Smoking Status (MU): Never Smoked Tobacco Have You Smoked in the Last Year: No Review of Systems Constitutional: Negative Eyes: Negative ENT: Other Positive: Sore Throat Cardiovascular: Negative Respiratory: Negative Gastrointestinal: Negative Genitourinary: Negative Musculoskeletal: Negative Skin: Negative All Other Systems Reviewed And Are Negative: Yes Physical Exam Triage Information Reviewed: Yes Vital Signs On Initial Exam: Initial Vitals Temp Pulse Resp BP Pulse Ox 36.6 C 71 17 129/71 99 06/07/18 21:55 06/07/18 21:55 06/07/18 21:55 06/07/18 21:55 06/07/18 21:55 Vital Signs Reviewed: Yes Appearance: Positive: Well-Appearing Skin: Positive: Warm, Dry, Numb Head/Face: Positive: Normal Head/Face Inspection Eyes: Positive: Normal ENT: Positive: Normal ENT inspection Neck: Positive: Other: - painful anterior cervical node Respiratory/Lung Sounds: Positive: Clear to Auscultation Cardiovascular: Positive: Normal Diagnostics - Vital Signs Vital Signs Temp Pulse Resp BP Pulse Ox 06/07/18 21:55 36.6 C 71 17 129/71 99 - Laboratory Lab Statement: Any lab studies that have been ordered have been reviewed, and results considered in the medical decision making process. EENT Course/Dx - Diagnoses Provider Diagnoses: Pharyngitis Discharge - Sign-Out/Discharge Documenting (check all that apply): Patient Departure All imaging exams completed and their final reports reviewed: Yes - Discharge Plan Condition: Good Disposition: HOME Patient Education Materials: Viral Syndrome (ED) Referrals: No Primary Care Phys,NOPCP [Primary Care Provider] - - Billing Disposition and Condition Condition: GOOD Disposition: Home
== END 2018-06-07 22:13 | disposition home or self-care (01) ==
LOC: UCCORT 21:49
DX: J02.9 Acute pharyngitis, unspecified (principal); Z88.1 Allergy status to other antibiotic agents
CPT/HCPCS: 87651; 99211; G0463

== ENCOUNTER 2018-08-04 20:15 | Emergency (ER) | payer BC ==
[2018-08-04 20:28] VITALS: BP 119/83
--- NOTE | 2018-08-04 20:36 | ED ---
Respiratory - HPI Summary HPI Summary: 22 yr old with the complaint of sore throat, sinus pain, congestion, post nasal drip. Onset of symptoms a week ago, and associated with occasional coughing and SOB relieved by his 's asthma inhaler. He has no history of asthma. Denies chest pain. Cough productive of sputum. - History of Current Complaint Chief Complaint: UCRespiratory Stated Complaint: ST/CONGESTION Time Seen by Provider: 08/04/18 20:28 Pain Intensity: 5 - Allergy/Home Medications Allergies/Adverse Reactions: Allergies Allergy/AdvReac Type Severity Reaction Status Date / Time Sulfa (Sulfonamide AdvReac Vomiting Verified 08/04/18 20:24 Antibiotics) PMH/Surg Hx/FS Hx/Imm Hx Endocrine/Hematology History: Denies: Hx Diabetes Respiratory History: Reports: Hx Asthma - Surgical History Surgery Procedure, Year, and Place: ear tubes at age 2-3 yrs Infectious Disease History: No Infectious Disease History: Denies: Traveled Outside the [place] in Last 30 Days - Family History Known Family History: Positive: None, Blood Disorder - mom has lymphoma - Social History Occupation: Employed Full-time Lives: With Family Alcohol Use: Rare Hx Substance Use: No Substance Use Type: Reports: None Smoking Status (MU): Never Smoked Tobacco Have You Smoked in the Last Year: No Review of Systems Constitutional: Negative Positive: Sore Throat, Nasal Discharge Positive: Shortness Of Breath, Cough All Other Systems Reviewed And Are Negative: Yes Physical Exam Triage Information Reviewed: Yes Vital Signs On Initial Exam: Initial Vitals Temp Pulse Resp BP Pulse Ox 97.6 F 74 17 119/83 100 08/04/18 20:25 08/04/18 20:25 08/04/18 20:25 08/04/18 20:25 08/04/18 20:25 Vital Signs Reviewed: Yes Appearance: Positive: Well-Appearing, No Pain Distress Skin: Positive: Warm, Skin Color Reflects Adequate Perfusion Head/Face: Positive: Normal Head/Face Inspection Eyes: Positive: EOMI ENT: Positive: Pharyngeal erythema, Nasal congestion, Nasal drainage, TMs normal , Sinus tenderness. Negative: Muffled voice, Hoarse voice Neck: Positive: Nontender Respiratory/Lung Sounds: Positive: Clear to Auscultation, Breath Sounds Present Cardiovascular: Positive: RRR. Negative: Murmur Abdomen Description: Positive: Nontender Musculoskeletal: Positive: Strength/ROM Intact Neurological: Positive: Sensory/Motor Intact, Alert, Oriented to Person Place, Time, CN Intact II-III Psychiatric: Positive: Normal - [place] Coma Scale Best Eye Response: 4 - Spontaneous Best Motor Response: 6 - Obeys Commands Best Verbal Response: 5 - Oriented Coma Scale Total: 15 Diagnostics - Vital Signs Vital Signs Temp Pulse Resp BP Pulse Ox 08/04/18 20:25 97.6 F 74 17 119/83 100 - Laboratory Lab Statement: Any lab studies that have been ordered have been reviewed, and results considered in the medical decision making process. Disposition - Course Course Of Treatment: 22 yr old with sinusitis and acute bronchitis. Rx with BIaxin and also with prednisone, and albuterol MDI. - Diagnoses Provider Diagnoses: Sinusitis, Acute bronchitis Discharge - Sign-Out/Discharge Documenting (check all that apply): Patient Departure All imaging exams completed and their final reports reviewed: No Studies - Discharge Plan Condition: Good Disposition: HOME Prescriptions: Albuterol HFA INHALER* [Ventolin HFA Inhaler*] 1 - 2 puff INH Q6H PRN #1 mdi PRN Reason: Cough Clarithromycin TAB* [Biaxin 500 MG TAB*] 500 mg PO BID #20 tab predniSONE TAB* [Deltasone 20 MG TAB*] 40 mg PO DAILY #8 tab Patient Education Materials: Sinusitis (ED), Acute Bronchitis (ED) Referrals: No Primary Care Phys,NOPCP [Primary Care Provider] - [facility] [place] [facility] [Outside] - 2 Days - Billing Disposition and Condition Condition: GOOD Disposition: Home
== END 2018-08-04 20:40 | disposition home or self-care (01) ==
LOC: UCCORT 20:15
DX: J32.9 Chronic sinusitis, unspecified (principal); J20.9 Acute bronchitis, unspecified; Z88.2 Allergy status to sulfonamides
CPT/HCPCS: 99212; G0463

== ENCOUNTER 2018-10-22 18:41 | Emergency (ER) | payer BC ==
[2018-10-22 20:29] VITALS: BP 114/54
--- NOTE | 2018-10-22 20:41 | UC ---
Respiratory Complaint HPI - HPI Summary HPI Summary: 22 yo male with < 48 hour hx of f/c, sore throat, nasal congestion Has 2 mo at home no CP or SOB - History of Current Complaint Chief Complaint: UCGeneralIllness Stated Complaint: CHILLS,SORE THROAT,FEVER Time Seen by Provider: 10/22/18 20:23 Hx Obtained From: Patient Onset/Duration: Gradual Onset, Lasting Days Timing: Constant Severity Initially: Mild Severity Currently: Moderate Pain Intensity: 0 Pain Scale Used: 0-10 Numeric Aggravating Factors: Nothing Alleviating Factors: Nothing Associated Signs And Symptoms: Positive: Fever, Chills, Nasal Congestion - Allergies/Home Medications Allergies/Adverse Reactions: Allergies Allergy/AdvReac Type Severity Reaction Status Date / Time Sulfa (Sulfonamide AdvReac Vomiting Verified 10/22/18 20:29 Antibiotics) Home Medications: Home Medications Ibuprofen TAB* [Motrin TAB* 400 MG] 400 mg PO Q6H PRN 10/22/18 [History Confirmed 10/22/18] PMH/Surg Hx/FS Hx/Imm Hx Previously Healthy: Yes Respiratory History: Asthma - Surgical History Surgical History: Yes Surgery Procedure, Year, and Place: ear tubes at age 2-3 yrs - Family History Known Family History: Positive: None, Blood Disorder - mom has lymphoma Negative: Cardiac Disease, Hypertension, Diabetes - Social History Alcohol Use: Rare Substance Use Type: None Smoking Status (MU): Never Smoked Tobacco Have You Smoked in the Last Year: No - Immunization History Most Recent Influenza Vaccination: Not the 2017/2017 Season Most Recent Tetanus Shot: unsure Review of Systems All Other Systems Reviewed And Are Negative: Yes Constitutional: Positive: Fever, Chills Skin: Positive: Negative Eyes: Positive: Negative ENT: Positive: Sore Throat, Nasal Discharge Respiratory: Positive: Negative Cardiovascular: Positive: Negative Gastrointestinal: Positive: Negative Genitourinary: Positive: Negative Motor: Positive: Negative Neurovascular: Positive: Negative Musculoskeletal: Positive: Myalgia Neurological: Positive: Headache Psychological: Positive: Negative Physical Exam Triage Information Reviewed: Yes Appearance: Well-Appearing, No Pain Distress, Well-Nourished Vital Signs: Initial Vital Signs Temp 98.8 F 10/22/18 20:25 Pulse 97 10/22/18 20:25 Resp 18 10/22/18 20:25 BP 114/54 10/22/18 20:25 Pulse Ox 100 10/22/18 20:25 Vital Signs Reviewed: Yes Eyes: Positive: Conjunctiva Clear ENT: Positive: Hearing grossly normal, Pharyngeal erythema, Nasal congestion, TMs normal, Uvula midline. Negative: Nasal drainage, Tonsillar swelling, Tonsillar exudate, Trismus, Muffled voice, Hoarse voice, Sinus tenderness Neck: Positive: Supple, Nontender, No Lymphadenopathy Respiratory: Positive: Lungs clear, Normal breath sounds, No respiratory distress, No accessory muscle use Cardiovascular: Positive: RRR, No Murmur Musculoskeletal: Positive: ROM Intact, No Edema Neurological: Positive: Alert Psychological Exam: Normal Skin Exam: Normal Diagnostic Evaluation - Laboratory O2 Sat by Pulse Oximetry: 100 - normal/not hypoxic Diagnostic Studies Comment: Strep (-), Influenza (-) Respiratory Course/Dx - Differential Dx/Diagnosis Provider Diagnosis: Viral URI Discharge - Sign-Out/Discharge Documenting (check all that apply): Patient Departure All imaging exams completed and their final reports reviewed: No Studies - Discharge Plan Condition: Stable Disposition: HOME Patient Education Materials: Upper Respiratory Infection (ED) Referrals: Edith Carson MD [Primary Care Provider] - 5 Days Additional Instructions: strep and flu tests negative rest tylenol or advil recheck for new or worsening symptoms or if not better in 4-6 days - Billing Disposition and Condition Condition: STABLE Disposition: Home
[2018-10-22 20:49] LABS: Influenza A Molecular NEGATIVE (Negative); Influenza B Molecular NEGATIVE (Negative)
== END 2018-10-22 21:11 | disposition home or self-care (01) ==
LOC: UCCORT 18:41
DX: J06.9 Acute upper respiratory infection, unspecified (principal); J45.909 Unspecified asthma, uncomplicated; Z88.2 Allergy status to sulfonamides
CPT/HCPCS: 87651; 99211; G0463

== ENCOUNTER 2019-12-27 11:28 | Emergency (ER) | payer SELFPAY ==
[2019-12-27 11:50] VITALS: BP 121/70
--- NOTE | 2019-12-27 12:17 | UC ---
Complaint Male HPI - HPI Summary HPI Summary: Asymptomatic male requests STD testing (gc/chlamydia and HIV) after his female partner was dx with HPV - History of Current Complaint Chief Complaint: UCGeneralIllness Stated Complaint: PERSONAL Time Seen by Provider: 12/27/19 11:38 Hx Obtained From: Patient Onset/Duration: Other - NA Severity Currently: None Pain Intensity: 0 Pain Scale Used: 0-10 Numeric Location: None Associated Signs And Symptoms: Positive: Negative Prior STD Hx: denies - Risk Factors Testicular Torsion: Negative - Allergies/Home Medications Allergies/Adverse Reactions: Allergies Allergy/AdvReac Type Severity Reaction Status Date / Time Sulfa (Sulfonamide AdvReac Swelling Verified 12/27/19 11:46 Antibiotics) Of Face,Lips,& Throat Home Medications: Home Medications NK [No Home Medications Reported] 12/27/19 [History Confirmed 12/27/19] PMH/Surg Hx/FS Hx/Imm Hx Previously Healthy: Yes - Surgical History Surgical History: Yes Surgery Procedure, Year, and Place: ear tubes at age 2-3 yrs - Family History Known Family History: Positive: Blood Disorder - mom has lymphoma Negative: Cardiac Disease, Hypertension, Diabetes - Social History Alcohol Use: Rare Substance Use Type: None Smoking Status (MU): Never Smoked Tobacco Have You Smoked in the Last Year: No - Immunization History Most Recent Influenza Vaccination: Not the 2017/2017 Season Most Recent Tetanus Shot: unsure Review of Systems All Other Systems Reviewed And Are Negative: Yes Constitutional: Positive: Negative Skin: Positive: Negative Eyes: Positive: Negative ENT: Positive: Negative Respiratory: Positive: Negative Cardiovascular: Positive: Negative Gastrointestinal: Positive: Negative Genitourinary: Positive: Negative Motor: Positive: Negative Neurovascular: Positive: Negative Musculoskeletal: Positive: Negative Neurological/Mental Status: Positive: Negative Psychological: Positive: Negative Physical Exam Triage Information Reviewed: Yes Appearance: Well-Appearing, No Pain Distress, Well-Nourished Vital Signs: Initial Vital Signs Temp 97.5 F 12/27/19 11:47 Pulse 86 12/27/19 11:47 Resp 16 12/27/19 11:47 BP 121/70 12/27/19 11:47 Pulse Ox 99 12/27/19 11:47 Vital Signs Reviewed: Yes Eyes: Positive: Conjunctiva Clear ENT: Positive: Hearing grossly normal, Uvula midline. Negative: Nasal congestion, Nasal drainage, Trismus, Muffled voice, Hoarse voice Dental Exam: Normal Neck: Positive: Supple, Nontender, No Lymphadenopathy Respiratory: Positive: Lungs clear, Normal breath sounds, No respiratory distress, No accessory muscle use Cardiovascular: Positive: RRR, No Murmur Male Genital Exam: Positive: Normal Genitalia, No Hernia, Other - uncircumcised. Negative: Epididymal Tenderness, Erythema, Hernia Mass, Lesions Musculoskeletal: Positive: ROM Intact, No Edema Neurological: Positive: Alert Psychological Exam: Normal Skin Exam: Normal Complaint Male Course/Dx - Differential Dx/Diagnosis Provider Diagnosis: Possible exposure to STD Discharge ED - Sign-Out/Discharge Documenting (check all that apply): Patient Departure All imaging exams completed and their final reports reviewed: No Studies - Discharge Plan Condition: Stable Disposition: HOME Patient Education Materials: Safe Sex Practices (ED) Referrals: Edith Carson MD [Primary Care Provider] - 2 Weeks Additional Instructions: Contact your MD to see if you are at an age that you can get the HPV vaccine tests pending - Billing Disposition and Condition Condition: STABLE Disposition: Home
[2019-12-28 12:28] LABS: HIV 4th Generation Nonreactive (Nonreactive)
[2019-12-28 12:33] LABS: Chlamydia trachomatis NAA Negative (Negative); Neisseria gonorrhoeae (GC) NAA Negative (Negative)
== END 2019-12-27 12:55 | disposition home or self-care (01) ==
LOC: UCCORT 11:28
DX: Z11.3 Encounter for screening for infections with a predominantly sexual mode of transmission (principal); Z88.2 Allergy status to sulfonamides
CPT/HCPCS: 36415; 87389; 87491; 87591; 99211; G0463